=== PATIENT | female | born 1965 | race Caucasian/White ===

== ENCOUNTER 2017-04-03 10:49 | Emergency (ER) | payer MEDICAID ==
[~2017-04-03] VITALS: Ht 165.1 cm; Wt 75.8 kg
[2017-04-03] MEDS ORDERED: ALBUTEROL/IPRATROPIUM 2.5MG/0.5MG, 3 ML NPPB ONE (11:30)
[2017-04-03] MEDS ORDERED: ALBUTEROL/IPRATROPIUM 2.5MG/0.5MG, 3 ML ONE (12:50)
[2017-04-03] MEDS ORDERED: ALBU0.63 NEB (12:56)
[2017-04-03] MEDS ORDERED: FLUT1DIS IH (12:56)
[2017-04-03 13:42] VITALS: BP 121/85
== END 2017-04-03 13:44 | disposition home or self-care (01) ==
LOC: ED 13:07
DX: J20.8 Acute bronchitis due to other specified organisms (principal); J45.31 Mild persistent asthma with (acute) exacerbation; B96.89 Other specified bacterial agents as the cause of diseases classified elsewhere; F17.210 Nicotine dependence, cigarettes, uncomplicated
CPT/HCPCS: 71046; 93005; 94640; 99284; J7512; J7620

== ENCOUNTER 2017-06-04 10:29 | Emergency (ER) | payer MEDICAID ==
[~2017-06-04] VITALS: Ht 165.1 cm; Wt 74.2 kg
[~2017-06-04 10:29] MED LIST: ALBU0.63 NEB; FLUT1DIS IH
[2017-06-04 10:32] VITALS: BP 135/89
[2017-06-04] MEDS ORDERED: ALBUTEROL/IPRATROPIUM 2.5MG/0.5MG, 3 ML NPPB ONE (11:30)
[2017-06-04] MEDS ORDERED: ALBUTEROL/IPRATROPIUM 2.5MG/0.5MG, 3 ML ONE (11:33)
== END 2017-06-04 12:10 | disposition home or self-care (01) ==
LOC: ED 12:05
DX: J45.31 Mild persistent asthma with (acute) exacerbation (principal); Z87.891 Personal history of nicotine dependence
CPT/HCPCS: 93005; 94640; 99283; J7512; J7620

== ENCOUNTER 2017-06-19 19:04 | Emergency (ER) | payer MEDICAID ==
[~2017-06-19] VITALS: Ht 165.1 cm; Wt 75.9 kg
[2017-06-19 19:10] VITALS: BP 116/76
[2017-06-19] MEDS ORDERED: ALBU6.7H INH (19:23)
[2017-06-19] MEDS ORDERED: ALBUTEROL/IPRATROPIUM 2.5MG/0.5MG, 3 ML NPPB ONE (19:30)
[2017-06-19] MEDS ORDERED: ALBUTEROL/IPRATROPIUM 2.5MG/0.5MG, 3 ML ONE (19:34)
== END 2017-06-19 19:49 | disposition home or self-care (01) ==
LOC: ED 19:35
DX: J45.31 Mild persistent asthma with (acute) exacerbation (principal); Z87.891 Personal history of nicotine dependence
CPT/HCPCS: 94640; 99283; J7512; J7620